=== PATIENT | female | born 1980 ===

== ENCOUNTER 2019-04-13 14:35 | Observation (INO) ==
[2019-04-13 15:21] LABS: Apearance,Urine CLOUDY (Clear); Bilirubin,Urine Negative (Negative); Blood, Urine Moderate mg/dL (Negative); Glucose,Urine (UA) Negative (Negative); Ketones,Urine 5 mg/dL (Negative); Mucus,Urine Many /LPF (Occasional); Nitrite,Urine Negative (Negative); Protein,Urine 30 MG/DL; RBC,Urine 38 /HPF (0-4); Squamous Epithelial Cell,Urine Moderate /HPF (0-10); Urine Color Amber (Yellow); Urine Specific Gravity 1.024 (1.001-1.035); WBC,Urine 13 /HPF (0-6)
[2019-04-13 15:27] LABS: Basophils # 0.1 10*3/uL (0.0-0.2); Basophils % 0.5 % (0.0-0.8); Eosinophils # 0.2 10*3/uL (0.0-0.87); Eosinophils % 1.4 % (0.00-10.9); Hematocrit 41.4 VOL% (35.7-47.0); Hemoglobin 13.7 GM/DL (12.0-16.0); Immature Granulocytes % 0.4 %; Immature Granulocytes Absolute 0.05 #; Lymphocytes # 3.8 10*3/uL (1.4-4.0); Lymphocytes % 30.3 % (21.3-54.2); Mean Corpuscular HGB Conc 33.1 GM/DL (32-36); Mean Corpuscular Volume 89.4 FL (87-102); Mean Platelet Volume 10.6 FL (9.6-12.0); Monocytes % 9.4 % (1.7-12.7); Platelet Count 281 T/CUMM (130-400); Red Blood Count 4.63 MC/CUMM (3.8-5.5); Red Cell Distribution Width 13.6 % (9.3-17.3); White Blood Count 12.4 T/CUMM (4-12)
[2019-04-13 15:46] LABS: Calcium 8.9 MG/DL (8.5-10.1); Osmolality,Calculated 281.3 MOS/KG (273-304)
[2019-04-13] MEDS ORDERED: MORPHINE 4 MG/1 ML VIAL IV STA (15:51)
[2019-04-13] MEDS ORDERED: ONDANSETRON 4 MG/2 ML VIAL IV STA (15:52)
[2019-04-13] MEDS ORDERED: ONDANSETRON 4 MG/2 ML VIAL IV PRN (16:41)
[2019-04-13] MEDS ORDERED: IBUPROFEN 800 MG TABLET PO PRN (16:41)
[2019-04-13] MEDS ORDERED: MORPHINE 4 MG/1 ML VIAL IV PRN (16:41)
[2019-04-13] MEDS ORDERED: BISACODYL 10 MG SUPP RECTAL PRN (16:41)
[2019-04-13] MEDS ORDERED: MAGNESIUM HYDROXIDE SUSP 30 ML UDCUP PO PRN (16:41)
[2019-04-13] MEDS: LACTATED RINGERS 1,000 ML IV SCH (18:20)
[2019-04-13] MEDS: PIPERACILLIN/TAZOBACTAM 3,375 MG in SODIUM CHLORIDE 0.9% 100 ML IV SCH (21:26)
[2019-04-13] MEDS: DOCUSATE SODIUM 100 MG CAPSULE PO SCH (21:26)
[2019-04-14] MEDS: LACTATED RINGERS 1,000 ML IV SCH ×2 (06:20→17:03)
[2019-04-14] MEDS: PIPERACILLIN/TAZOBACTAM 3,375 MG in SODIUM CHLORIDE 0.9% 100 ML IV SCH (06:22)
[2019-04-14] MEDS ORDERED: ONDANSETRON 4 MG/2 ML VIAL IV PRN (11:08)
[2019-04-14] MEDS ORDERED: HYDROmorphone 2 MG/1 ML VIAL ONE (11:10)
[2019-04-14] MEDS: HYDROmorphone 2 MG/1 ML VIAL IV PRN ×4 (11:10→11:33)
[2019-04-14] MEDS ORDERED: ONDANSETRON 4 MG/2 ML VIAL ONE ×2 (11:10→11:48)
[2019-04-14] MEDS ORDERED: PROPOFOL 200 MG/20 ML VIAL IV ONE (11:47)
[2019-04-14] MEDS ORDERED: SEVOFLURANE 1 UNIT/15 MINUTE INH ONE (11:47)
[2019-04-14] MEDS ORDERED: LIDOCAINE 100 MG/5 ML SYRINGE ONE (11:47)
[2019-04-14] MEDS ORDERED: fentaNYL 100 MCG/2 ML VIAL ONE (11:47)
[2019-04-14] MEDS ORDERED: MIDAZOLAM 2 MG/2 ML VIAL ONE (11:47)
[2019-04-14] MEDS: PANTOPRAZOLE 40 MG TABLET PO SCH (12:56)
[2019-04-14] MEDS: DOCUSATE SODIUM 100 MG CAPSULE PO SCH ×2 (12:56→20:30)
[2019-04-14] MEDS: SULFAMETHOX/TRIMETHOPRIM 800-160 MG TABLET PO SCH ×2 (15:26→20:30)
[2019-04-14] MEDS: oxyCODONE/ACETAMINOPHEN 5-325 MG TABLET PO PRN (17:03)
[2019-04-15] MEDS: oxyCODONE/ACETAMINOPHEN 5-325 MG TABLET PO PRN ×2 (00:36→09:12)
[2019-04-15] MEDS ORDERED: oxyCODONE/ACETAMINOPHEN 5-325 MG TABLET PO PRN (04:39)
[2019-04-15] MEDS: LACTATED RINGERS 1,000 ML IV SCH (04:42)
[2019-04-15 05:18] LABS: Basophils % 0.5 % (0.0-0.8); Eosinophils # 0.3 10*3/uL (0.0-0.87); Eosinophils % 3.4 % (0.00-10.9); Hematocrit 38.7 VOL% (35.7-47.0); Hemoglobin 12.4 GM/DL (12.0-16.0); Immature Granulocytes % 0.6 %; Immature Granulocytes Absolute 0.05 #; Lymphocytes # 3.7 10*3/uL (1.4-4.0); Lymphocytes % 43.7 % (21.3-54.2); Mean Corpuscular Volume 91.5 FL (87-102); Mean Platelet Volume 11.3 FL (9.6-12.0); Neutrophils % 42.8 % (38.7-73.9); Platelet Count 262 T/CUMM (130-400); Red Blood Count 4.23 MC/CUMM (3.8-5.5); Red Cell Distribution Width 13.6 % (9.3-17.3); White Blood Count 8.6 T/CUMM (4-12)
[2019-04-15] MEDS: PANTOPRAZOLE 40 MG TABLET PO SCH (09:11)
[2019-04-15] MEDS: DOCUSATE SODIUM 100 MG CAPSULE PO SCH (09:11)
[2019-04-15] MEDS: SULFAMETHOX/TRIMETHOPRIM 800-160 MG TABLET PO SCH (09:11)
[2019-04-15 11:57] VITALS: BP 133/80
[2019-04-15] MEDS ORDERED: SODIUM HYPOCHLORITE 0.25% IRRIG 473 ML BOTTLE TOP SCH (12:00)
== END 2019-04-15 15:36 | disposition home or self-care (01) ==
LOC: EDBD → EDUNIT# → N.ED 14:35 → N.EDINP 14:35 → N.2E 16:16
PROVIDERS: ADMIT Obstetrics & Gynecology; ATTEND Obstetrics & Gynecology

== ENCOUNTER 2021-01-31 17:51 | Observation (INO) ==
[2021-01-31] MEDS ORDERED: SODIUM CHLORIDE 0.9% 1,000 ML IV STA (18:36)
[2021-01-31] MEDS ORDERED: PIPERACILLIN/TAZOBACTAM 3,375 MG in SODIUM CHLORIDE 0.9% 100 ML IV STA (18:36)
[2021-01-31 18:53] LABS: Basophils % 0.1 % (0.0-0.8); Eosinophils # 0.1 10*3/uL (0.0-0.87); Eosinophils % 0.4 % (0.00-10.9); Hematocrit 34.3 VOL% (35.7-47.0); Immature Granulocytes % 0.5 %; Immature Granulocytes Absolute 0.07 #; Lymphocytes # 2.6 10*3/uL (1.4-4.0); Lymphocytes % 18.2 % (21.3-54.2); Mean Corpuscular HGB Conc 32.1 GM/DL (32-36); Mean Corpuscular Volume 88.9 FL (87-102); Mean Platelet Volume 10.9 FL (9.6-12.0); Monocytes % 6.4 % (1.7-12.7); Neutrophils % 74.4 % (38.7-73.9); Platelet Count 224 T/CUMM (130-400); Red Blood Count 3.86 MC/CUMM (3.8-5.5); Red Cell Distribution Width 14.1 % (9.3-17.3); White Blood Count 14.1 T/CUMM (4-12)
[2021-01-31 19:01] LABS: Albumin 2.9 G/DL (3.4-5.0); Bilirubin,Total 1.5 MG/DL (0.20-1.00); Calcium 8.2 MG/DL (8.5-10.1); Osmolality,Calculated 275.5 MOS/KG (273-304); Potassium 3.6 MMOL/L (3.5-5.1); Total Protein 7.1 G/DL (6.4-8.2)
[2021-01-31 20:05] LABS: Bacteria,Urine Occasional /HPF (Few); Bilirubin,Urine Negative (Negative); Blood, Urine Negative (Negative); Glucose,Urine (UA) Negative (Negative); Ketones,Urine Negative (Negative); Mucus,Urine Occasional /LPF (Occasional); Nitrite,Urine Negative (Negative); Protein,Urine Negative; RBC,Urine 1 /HPF (0-4); Squamous Epithelial Cell,Urine Occasional /HPF (0-10); Urine Appearance CLEAR (Clear); Urine Color Yellow (Yellow); Urine Specific Gravity 1.016 (1.001-1.035)
[2021-01-31] MEDS ORDERED: ACETAMINOPHEN 325 MG TABLET PO PRN (23:54)
[2021-01-31] MEDS ORDERED: MORPHINE 2 MG/1 ML SYRINGE IV PRN (23:54)
[2021-01-31] MEDS ORDERED: ONDANSETRON 4 MG/2 ML VIAL IV PRN (23:54)
[2021-02-01] MEDS: LACTATED RINGERS 1,000 ML IV SCH ×3 (00:37→17:31)
[2021-02-01] MEDS: PIPERACILLIN/TAZOBACTAM 3,375 MG in SODIUM CHLORIDE 0.9% 100 ML IV SCH ×3 (05:29→20:59)
[2021-02-01] MEDS ORDERED: TISSUE ADHESIVE 1 EACH APPLICATOR TOP ONE (08:53)
[2021-02-01] MEDS ORDERED: BUPIVACAINE MPF 0.25% 30 ML VIAL ONE ×2 (08:53→09:08)
[2021-02-01] MEDS ORDERED: LIDOCAINE 1%/EPI INJ 20 ML VIAL ONE (08:54)
[2021-02-01] MEDS ORDERED: fentaNYL 100 MCG/2 ML VIAL ONE (09:09)
[2021-02-01] MEDS ORDERED: SUCCINYLCHOLINE 200 MG/10 ML VIAL ONE (09:09)
[2021-02-01] MEDS ORDERED: ROCURONIUM 50 MG/5 ML VIAL IV ONE (09:09)
[2021-02-01] MEDS ORDERED: propofoL 200 MG/20 ML VIAL IV ONE (09:09)
[2021-02-01] MEDS ORDERED: LIDOCAINE 2% 5 ML VIAL ONE (09:09)
[2021-02-01] MEDS ORDERED: MIDAZOLAM 2 MG/2 ML VIAL ONE (09:10)
[2021-02-01] MEDS ORDERED: SEVOFLURANE 1 UNIT/15 MINUTE INH ONE ×2 (09:35→10:20)
[2021-02-01] MEDS ORDERED: ACETAMINOPHEN INJ 1,000 MG/100 ML VIAL IV ONE (09:36)
[2021-02-01] MEDS ORDERED: KETOROLAC 30 MG/1 ML VIAL ONE (09:36)
[2021-02-01] MEDS ORDERED: DEXAMETHASONE 4 MG/1 ML VIAL ONE (09:36)
[2021-02-01] MEDS ORDERED: ONDANSETRON 4 MG/2 ML VIAL ONE (09:36)
[2021-02-01] MEDS ORDERED: LACTATED RINGERS 1,000 ML IV ONE (09:58)
[2021-02-01] MEDS ORDERED: NEOSTIGMINE 10 MG/10 ML VIAL ONE (09:58)
[2021-02-01] MEDS ORDERED: GLYCOPYRROLATE 0.4 MG/2 ML VIAL ONE (09:58)
[2021-02-01] MEDS: PANTOPRAZOLE 40 MG TABLET PO SCH (10:57)
[2021-02-02] MEDS: LACTATED RINGERS 1,000 ML IV SCH ×2 (03:08→10:30)
[2021-02-02] MEDS: PIPERACILLIN/TAZOBACTAM 3,375 MG in SODIUM CHLORIDE 0.9% 100 ML IV SCH ×2 (04:26→12:05)
[2021-02-02 08:10] VITALS: BP 125/57
[2021-02-02] MEDS: PANTOPRAZOLE 40 MG TABLET PO SCH (10:31)
== END 2021-02-02 13:00 | disposition home or self-care (01) ==
LOC: EDUNIT# → EDBD → N.ED 17:51 → N.EDINP 17:51 → N.3E 23:51
PROVIDERS: ADMIT Surgery; ATTEND Surgery